=== PATIENT | male | born 1940 | race Caucasian/White ===

== ENCOUNTER 2018-09-20 15:18 | Observation (INO) ==
[2018-09-20] MEDS ORDERED: ZOFRAN IV PRN (15:27)
[2018-09-20] MEDS ORDERED: NS 1,000 ML IV SCH ×2 (15:30→17:43)
[2018-09-20] MEDS: ZOSYN 3.375 GM in NS 50 ML IV SCH ×2 (16:00→21:54)
[2018-09-20 16:36] LABS: BASO# 0.03 X1000 (0.0-0.2); BASO% 0.5 % (0.0-0.8); EOS# 0.09 X1000 (0.0-0.7); EOS% 1.5 % (0.0-10.0); HEMATOCRIT 41.1 % (42.0-52.0); HEMOGLOBIN 14.5 g/dL (14.0-18.0); IMM GRAN# 0.05 X1000 (0.0-0.04); IMM GRAN% 0.8 % (0.0-0.5); LYMPH# 1.55 X1000 (1.2-3.4); MCH 34.9 PG (27-31); MCHC 35.3 g/dL (33-37); MCV 98.8 FL (81-99); MONO% 11.3 % (1.7-9.3); NEUT# 3.77 X1000 (1.4-6.5); NEUT% 60.9 % (42.2-75.2); PLT 244 X1000 (130-400); RBC 4.16 XMIL (4.7-6.1); RDW 12.2 % (11.5-14.5); WBC 6.19 X1000 (4.8-10.8)
[2018-09-20 16:59] LABS: CALCIUM 9.2 mg/dL (8.8-10.2); CREATININE 1.2 mg/dL (0.7-1.2); POTASSIUM 3.5 mmol/L (3.5-5.1)
[2018-09-20] MEDS ORDERED: TYLENOL PO PRN (17:44)
--- NOTE | 2018-09-20 18:10 | HISTORY AND PHYSICAL ---
CHIEF COMPLAINT: Abdominal pain. 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 He has developed abdominal pain, actually more on the right than the left. It has increased in severity. He has had a chill while there in [place]. He did take an antibiotic, the name of which he does not recall, that was given to him by his [id number]. He denies any nausea or vomiting. He also was experiencing some chest discomfort, even though he admits to doing some work down there and it may be musculoskeletal in character. He has had a cardiac workup in the past that was unremarkable. PAST MEDICAL HISTORY: Includes prostate cancer, and he has had a prostatectomy. He has had urgent cardiac catheterization in the past. He has had some hypertension. MEDICATIONS: His medications at home include allopurinol 300 mg daily, Norvasc 10 mg daily, Aricept 5 mg at bedtime, Protonix 40 mg at bedtime. ALLERGIES: He has an intolerance to codeine, hydrocodone, tamsulosin and pseudoephedrine. SOCIAL HISTORY: He does not smoke. He does drink alcohol socially. Denies any illicit drug use. He is . He is retired. FAMILY HISTORY: Unremarkable. REVIEW OF SYSTEMS: As noted above. PHYSICAL EXAMINATION: VITAL SIGNS: Temperature is 99.1 degrees, heart rate 89, blood pressure 139/70. NECK: No cervical adenopathy. LUNGS: Bilateral breath sounds. HEART: Regular rate and rhythm. ABDOMEN: Diffusely tender. LABORATORY DATA: White count 6200, hemoglobin 14.5. BUN 14, creatinine 1.2. ASSESSMENT: Possible acute diverticulitis. PLAN: Clear liquids. We will start him on Zosyn. We will get a CT scan with IV and p.o. contrast to further evaluate him. Because of his chest discomfort, we will get an EKG. 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 cc: Jagdish Matthews MD
[2018-09-20] MEDS ORDERED: BENADRYL IV ONE (18:34)
[2018-09-20 19:03] LABS: URINE SOURCE CLEAN CATCH
[2018-09-20] MEDS ORDERED: PROTONIX PO ONE (19:06)
[2018-09-20 19:10] LABS: BILIRUBIN URINE NEGATIVE (NEGATIVE); BLOOD URINE NEGATIVE (NEGATIVE); COLOR YELLOW; GLUCOSE URINE NEGATIVE (NEGATIVE); KETONE URINE NEGATIVE (NEGATIVE); LEUKOCYTES URINE NEGATIVE (NEGATIVE); NITRITE URINE NEGATIVE (NEGATIVE); PH URINE 7.5; PROTEIN URINE NEGATIVE (NEGATIVE); TURBIDITY URINE CLEAR (CLEAR); UROBILINOGEN URINE NORMAL (NORMAL)
[2018-09-20 19:11] LABS: UR EPITHELIAL CELLS <10 /HPF (<10); URINE BACTERIA NEGATIVE /HPF; URINE RBC <10 /HPF (<10); URINE WBC <10 /HPF (<10)
[2018-09-20 19:58] LABS: ALB/GLOB RATIO 1.8; ALBUMIN 4.3 g/dL (3.5-5.0); CK INDEX 1.9 (0.0-2.5); CK-MB 4.61 ng/mL (0.0-5.0); DIRECT BILIRUBIN 0.2 mg/dL (0.00-0.20); TOTAL BILIRUBIN 0.46 mg/dL (0.20-1.00); TOTAL PROTEIN 6.7 g/dL (6.3-8.3)
--- NOTE | 2018-09-20 20:45 | Diag Imaging Result Doc PS360 ---
EXAM: CT ABD/PELVIS W/PO AND IV CON 09/20/2018 HISTORY: abd pain TECHNIQUE: This exam was performed using automated exposure control, adjustment of mA or kV according to patient size, and/or use of iterative reconstruction technique. COMMENT: There is no evidence of acute disease in the visualized portion of the chest. There are granulomata in the spleen. The liver is somewhat hypodense suggesting fatty change. There may be some small stones layering dependently in the gallbladder. No evidence of para cholecystic fluid is present. There is some cortical scarring in the lower pole of the left kidney. The aorta is slightly distended below the level of the renal arteries to a maximum AP diameter of 2.6 cm. The appendix is unremarkable. The adrenal glands are within normal limits. There is some contrast and stool in the colon. The small bowel is not distended. The appendix is normal in appearance. There is no evidence of significant adenopathy. There is diverticulosis in the descending colon. Pelvis: There is severe diverticulosis of the sigmoid colon. There is a focus of diverticulitis present in the anterior sigmoid colon without evidence of abscess. There is a small amount of free fluid in the rectovesical pouch. The urinary bladder is not distended. There are bilateral hip prostheses. There is degenerative disc disease with vacuum disc phenomenon at L5-S1 and vacuum facet arthropathy at L4-5 and L5-S1. IMPRESSION: Sigmoid diverticulitis. The findings were discussed with Jagdish Matthews MD at 09/20/2018 8:42 PM. Electronically signed by Jaquan Milton 09/20/2018 8:42 PM
[2018-09-20] MEDS ORDERED: ARICEPT PO SCH (21:00)
[2018-09-20] MEDS: TYLENOL PM PO PRN (22:06)
[2018-09-21] MEDS: ZOSYN 3.375 GM in NS 50 ML IV SCH ×4 (04:20→20:44)
[2018-09-21] MEDS: PROTONIX PO SCH (06:49)
[2018-09-21 06:56] LABS: BASO# 0.03 X1000 (0.0-0.2); BASO% 0.6 % (0.0-0.8); EOS# 0.13 X1000 (0.0-0.7); EOS% 2.5 % (0.0-10.0); HEMATOCRIT 40.2 % (42.0-52.0); HEMOGLOBIN 14.3 g/dL (14.0-18.0); IMM GRAN# 0.04 X1000 (0.0-0.04); IMM GRAN% 0.8 % (0.0-0.5); LYMPH# 1.34 X1000 (1.2-3.4); LYMPH% 26.2 % (20.5-51.1); MCH 35.2 PG (27-31); MCHC 35.6 g/dL (33-37); MONO# 0.86 X1000 (0.11-0.59); MONO% 16.8 % (1.7-9.3); MPV 8.8 FL (7.4-10.4); NEUT# 2.72 X1000 (1.4-6.5); NEUT% 53.1 % (42.2-75.2); PLT 228 X1000 (130-400); RBC 4.06 XMIL (4.7-6.1); RDW 12.1 % (11.5-14.5); WBC 5.12 X1000 (4.8-10.8)
[2018-09-21 07:13] LABS: ALB/GLOB RATIO 1.5; ALBUMIN 3.8 g/dL (3.5-5.0); CALCIUM 9.1 mg/dL (8.8-10.2); CREATININE 1.2 mg/dL (0.7-1.2); POTASSIUM 3.6 mmol/L (3.5-5.1); TOTAL BILIRUBIN 0.8 mg/dL (0.20-1.00); TOTAL PROTEIN 6.4 g/dL (6.3-8.3)
--- NOTE | 2018-09-21 08:28 | Diag Imaging Result Doc PS360 ---
EXAM: CHEST-2 VIEWS 09/21/2018 HISTORY: chest pain TECHNIQUE: PA and lateral chest COMMENT: There is no evidence of acute cardiac or pulmonary disease. Compared to 03/25/2018 there has been no significant change. IMPRESSION: Stable chest. Electronically signed by Jaquan Milton 09/21/2018 8:25 AM
[2018-09-21] MEDS: ZYLOPRIM PO SCH (08:57)
[2018-09-21] MEDS: NORVASC PO SCH (08:57)
[2018-09-21] MEDS ORDERED: NORVASC PO SCH (09:00)
[2018-09-21] MEDS ORDERED: ZYLOPRIM PO SCH (09:00)
--- NOTE | 2018-09-21 10:42 | CONSULTATION ---
DATE OF CONSULTATION: 09/20/2018 PRIMARY CARE PHYSICIAN: Dr. Art Morris. CHIEF COMPLAINT: Right lower quadrant pain, chest pain. HISTORY OF PRESENT ILLNESS: An 78-year-old, white male with past medical history significant for cervical spine pain, chronic kidney disease, diverticulitis, reflux disease, gout, hyperlipidemia, hypertension, obstructive sleep apnea, osteoarthritis, and prostate cancer presents for evaluation of above-mentioned symptoms. Current history of present illness began approximately 3 days ago. At that time, patient states he developed acute onset right lower quadrant pain. He noted associated chills, but denied fevers, nausea and vomiting. The patient started taking amoxicillin with some improvement. Unfortunately, symptoms did not resolve. The patient has had occasional episodes of diarrhea, but denies hematochezia and melena. He denies urinary symptoms including dysuria, hematuria, pyuria and urinary frequency. Because of persistent pain, patient contacted Dr. Matthews. Patient was admitted for full evaluation and management. In addition, patient states last night he developed chest discomfort. He describes this as similar to "angina." The location is noted to be substernal. He characterizes this as a pressure. He does have some pleuritic component, including pain with movement and with deep breathing. He also notes some pain with exertion and lifting boxes. He denies associated shortness of breath and diaphoresis. He has not experienced paroxysmal nocturnal dyspnea, orthopnea, or palpitations. He has chronic lower extremity edema. The patient will be admitted to the hospital for full evaluation and management of each of these conditions. PAST MEDICAL HISTORY: 1. Abnormal skin examination with multiple nevi and seborrheic keratoses. 2. Bilateral cataracts status post left-sided removal in 2017. 3. Cervical spine pain. 4. History of multiple episodes of chest discomfort. Per report, the last left heart catheterization was in 2016 reported as without significant blockage. 5. Chronic kidney disease with baseline creatinine 1.3. 6. History of diverticulitis in 1999 and 2011. 7. Reflux disease. 8. Gout. 9. Hyperlipidemia. 10. Hypertension. 11. History of tobacco use 12. Obstructive sleep apnea. 13. Osteoarthritis of bilateral hips, status post bilateral total hip arthroplasties. 14. Prostate cancer, status post robotic prostatectomy in 2016. 15. Chronic tinnitus. 16. Macular degeneration. CURRENT MEDICATIONS: 1. Allopurinol 300 mg daily. 2. Amlodipine 10 mg daily. 3. Vitamin B complex daily. 4. Losartan 50 mg at bedtime. 5. Pantoprazole 40 mg daily as needed. ALLERGIES: The patient states he is allergic to Benadryl which causes vivid dreams, Cymbalta which causes unsteady gait, hydrochlorothiazide which causes hyponatremia and hypokalemia, Lexapro which causes nightmares and Rapaflo which causes alteration of mental status and hyponatremia. SOCIAL HISTORY: The patient [*]cigars routinely. He has approximately 4 to 6 alcoholic drinks per week. He denies illicit drug use. 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 He enjoys hunting and fishing. He does not exercise routinely. FAMILY HISTORY: Patient's father passed at age 61 with complications of metastatic tongue cancer. He had a history of coronary artery disease with an acute myocardial infarction at age 58. The patient's mother passed secondary to unknown causes at age 99. She had a history of breast cancer. REVIEW OF SYSTEMS: A 12 point review of systems was performed. Pertinent positives and negatives are noted in history of present illness. PHYSICAL EXAMINATION: Vital signs: Temperature 99.1 degrees, heart rate 89, respirations 16, blood pressure is 139/70. General: Well nourished, well developed, no acute distress. HEENT: Normocephalic, atraumatic. Pupils equal, round, react to light. Extraocular muscles intact. Sclerae anicteric. [place] conjunctivae. Oral and nasopharynx clear without exudate. Neck: Supple. No lymphadenopathy. No thyromegaly. No bruits auscultated. Cardiovascular: Regular rate and rhythm. No significant murmurs, rubs, or gallops. Pulmonary: Clear to auscultation bilaterally. Abdomen: Soft. Tenderness in the right lower quadrant with guarding and rebound. Positive bowel sounds. Extremities: Moves all extremities well. No significant clubbing or cyanosis. There is 1+ lower extremity edema bilaterally. Neurologic examination: Cranial nerves 2 through 12 grossly intact. Motor and sensory grossly intact. PSYCHOLOGIC EXAMINATION: Appropriate. LABORATORY DATA: White blood cell count 6.19, hemoglobin 14.5, hematocrit 41.1, platelet count 244,000. Sodium 140, potassium 3.5, chloride 102, bicarbonate 21. BUN 14, creatinine 1.2, glucose 98, calcium 9.2. Total bilirubin 0.46, total protein 6.7, albumin 4.3. Alkaline phosphatase 99, AST 19, ALT 15. CK total 237, CK MB 4.61. Troponin less than 0.010. Urinalysis returned negative. IMAGING DATA: CT scan of the abdomen and pelvis is pending. ASSESSMENT AND PLAN: An 78-year-old, white male with past medical history as noted presents for evaluation of abdominal and chest discomfort. Abdominal pain is concerning for right lower quadrant pathology. This would include, but is not limited to appendicitis, atypical diverticulitis, colitis, urinary pathology including symptomatic nephrolithiasis, and adhesive disease. The patient's chest discomfort, although just atypical, could be of cardiac, musculoskeletal, gastrointestinal and pulmonary etiologies. The patient will be admitted to the hospital for full evaluation and management of each of these conditions. 1. Admit to [address] [place] [address]. 2. Abdominal pain/right lower quadrant pain--differential diagnosis is as described above. Laboratory data thus far is significant only for a normal white blood cell count, normal urinalysis, slightly low bicarbonate level, and an elevated anion gap of 17. I agree with intravenous antibiotics in the form of Zosyn. We will continue hydration. Further evaluation and management will be determined by CT scan findings. 3. Chest pain--as above, this is somewhat atypical. In the setting of multiple risk factors, including hypertension, hyperlipidemia, family history of heart disease, and advanced age, full evaluation is warranted. We will follow serial cardiac enzymes. We will place patient on telemetry. We will consult Dr. Mckeon for further cardiac guidance. At this point, I do feel abdominal symptoms are the primary diagnosis. Once this has been confirmed and treated, cardiac evaluation may be warranted. 4. Hypertension--for now, we will continue amlodipine therapy. We will hold losartan for now, especially in the setting of intravenous contrast. We will resume this once necessary. 5. Gout--we will continue patient on allopurinol therapy. 6. Chronic kidney disease--we will remain aware, especially in the setting of a CT scan evaluation. We will continue intravenous hydration. 7. Reflux disease--we will continue patient on pantoprazole therapy. Thank you for allowing me to participate in the care of Dr. Mattson. Recommendations will be determined by the CT scan findings and further laboratory and clinical evaluations. cc: MD Jagdish Valdez MD
[2018-09-21] MEDS ORDERED: LOVENOX SUBQ SCH (11:30)
--- NOTE | 2018-09-21 12:29 | CARDIOLOGY CONSULTATION ---
DATE: 09/21/2018 CHIEF COMPLAINT ON PRESENTATION: Abdominal pain as well as chest pain. 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 He presents for a few days of abdominal discomfort. This began while he was down in [place] doing some what sounds like maintenance around the house. He described as initially developing in the right lower quadrant and then eventually proceeding to involve essentially the entire abdomen but again, more acute in the right lower quadrant. He apparently had some antibiotics at home in the form of amoxicillin and began taking it with minimal improvement. He has had some diarrhea but really denies any nausea. The pain persisted and ultimately he was admitted by Dr. Matthews for further evaluations. Subsequently after admission, he had a CT of his abdomen that demonstrated diverticulitis. Over the last few days as well, he has had some episodes of discomfort in his chest. This was substernal in location. He has a difficult time describing some of these pains. They seem to be somewhat positional, occasionally pleuritic. He relates of many of these to doing a lot of maintenance around the house including lifting boxes. Some of these seemed to worsen in the days after he had these events. He has some history of cardiac evaluation, specifically a cardiac catheterization done a couple of years ago. I do not have the results of this. He cannot specifically report an exertional component of the pain occurring with non upper extremity exertion. It seems like he had several bouts of this over the last couple of days and again, some of them seem to be positional in nature and musculoskeletal, as well as there is some tenderness to palpation along the sternal border. PAST MEDICAL HISTORY: 1. Significant for previous episodes of chest discomfort with most recent cardiac catheterization in [address] Restrepo over at [facility]. I do not have the results of this. 2. Reflux disease. 3. Previous histories of diverticulitis. 4. Gout. 5. Hyperlipidemia. 6. Hypertension. 7. Obstructive sleep apnea. 8. Osteoarthritis. 9. Prostate cancer. 10. Macular degeneration. SOCIAL HISTORY: He smokes cigars. No illicit drug use. 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 FAMILY HISTORY: Father at 61 with an oropharyngeal cancer and had some heart disease with a LA around the age of 58. Mother around the age of 99. REVIEW OF SYSTEMS: A 10 system review of systems has been negative except for those mentioned the HPI. PHYSICAL EXAMINATION: Vital signs: The patient is afebrile during this hospitalization. His heart rate is 62 and seems to be predominantly in the 50s to 60s recently. His blood pressure is 138/74. General: He is in no acute distress. HEENT: Oropharynx is moist. Eye examination shows pink conjunctivae, white sclerae. Neck: Shows no obvious thyromegaly, no thyroid tenderness. Cardiovascular: He sounds to be in a regular rate and rhythm. I do not hear any obvious murmurs. He has no lower extremity edema. He has intact distal pulses in his bilateral lower extremities. Chest: Clear to auscultation bilaterally. He has no increased work of breathing. Abdomen: Soft. Bowel sounds are present. He has diffuse tenderness, most prominent in the right lower quadrant with some rebound noted. Extremities: No lower extremity edema. Neurological: He is moving all extremities well with no lateralizing deficits. Psychiatric: He is alert, oriented, pleasant. He has normal mood and affect. PERTINENT DATA: His EKG on presentation yesterday shows sinus rhythm with a first-degree AV block, rate of 69 beats per minute. No obvious ischemic changes or signs of previous infarct. His abdomen and pelvis CT was reviewed and demonstrates sigmoid diverticulitis. His chest x-ray today demonstrates no evidence of acute abnormalities. His lab findings show a white count of 5.1 hematocrit of 40, and his platelet count is 228,000. His sodium is 139, potassium 3.6, his BUN is 11, creatinine is 1.2. His LDL in November of last year was 106. His cardiac enzymes are negative times multiple sets. 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 PLAN: He is currently on antibiotics and seems to have an improvement in his overall symptoms as far as his abdomen is concerned. His EKG is normal. He has no elevation of his cardiac enzymes. His symptoms are somewhat atypical. We will try to obtain results of his cardiac catheterization. He was previously on amlodipine and losartan for antihypertensives We may preferentially try to stop the losartan and use another antianginal, possibly a nitrate considering his heart rate has been in the 50s to 60s, and then may just recommend reassessment of his symptoms as an outpatient. Certainly, we will review the catheterization results from a couple years ago as well. cc: MD Jagdish Collier MD MTDD
--- NOTE | 2018-09-21 12:29 | GENERAL SURGERY PROGRESS NOTE ---
DATE: 09/21/2018 Dr. 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 He still has some mild peritoneal tenderness, but he is slightly improved. He is afebrile. His white count is normal. The plan is to give him full liquids today. Continue Zosyn. We will reevaluate him tomorrow for advancing his diet. We will give him Ensure or Boost today as well. cc: Jagdish Matthews MD
--- NOTE | 2018-09-21 19:45 | PROGRESS NOTE ---
DATE: 09/21/2018 SUBJECTIVE: The patient was admitted yesterday with intractable right lower quadrant pain and chest discomfort. Full evaluation including a CT scan of the chest returned with acute sigmoid diverticulitis. Cardiac evaluation has included an EKG which returned with nonspecific ST and T- wave changes, largely unchanged from previous, and cardiac enzymes which returned negative. Telemetry overnight revealed no evidence of arrhythmia. This morning patient states overall he has achieved improvement. He continues to have some right lower quadrant pain, although this has decreased. Chest discomfort has essentially resolved. He denies fevers, chills, nausea, vomiting, or chest discomfort. Thus far, he has tolerated a clear liquid diet. OBJECTIVE: T-max 99.1 degrees, heart rate 57 to 89, respirations 16 to 20, blood pressure 121 to 139 over 72 to 75.General: Well nourished, well developed, no acute distress. Cardiovascular: Regular rate and rhythm. No significant murmurs, rubs, or gallops. Pulmonary: Clear to auscultation bilaterally. Abdomen: Soft. Tenderness in the right lower quadrant with guarding. Questionable rebound. Positive bowel sounds. Extremities: Moves all extremities well. No significant clubbing, cyanosis, or edema. Dermatologic: Evaluation reveals no evidence of rash. LABORATORY DATA: White blood cell count 5.12, hemoglobin 14.3, hematocrit 40.2, platelet count 228,000. Sodium 139, potassium 3.6, chloride 103, bicarb 24, BUN 11, creatinine 1.2, glucose 92, calcium 9.1, total bilirubin 0.80, total protein 6.4, albumin 3.8, alkaline phosphatase 88, AST 16, ALT 12. CT scan of the abdomen revealed severe diverticulosis of the sigmoid colon with a focus of diverticulitis present in the anterior sigmoid colon without evidence of abscess. Chest x-ray revealed a stable chest. ASSESSMENT AND PLAN: 1. Acute diverticulitis-this is in the setting of severe diverticulosis. We will continue patient on IV Zosyn therapy as his symptoms are improving. We will advance his diet to a full liquid diet. I suspect patient will benefit from intravenous antibiotics until early next week. At that time, we will transition him to ciprofloxacin and Flagyl for a total of 10 to 14 days. 2. Chest discomfort-symptoms were atypical. He is currently asymptomatic. He does, however, have multiple risk factors including hypertension, hyperlipidemia, family history of heart disease and advanced age. With a negative evaluation thus far, I do not feel acute intervention is necessary. We will follow recommendations per Dr. Mckeon. I suspect an outpatient evaluation including stress testing will be appropriate. 3. Hypertension-blood pressure is reasonably controlled with amlodipine therapy. We will continue to hold his losartan for now. 4. Gout-we will continue allopurinol therapy. 5. Chronic kidney disease-patient's creatinine remained stable at 1.2 after intravenous contrast for his CT scan. We will remain aware. 6. Disposition-at this point, patient continues to require correction care in the hospital setting. We will plan discharge home once appropriate. cc: MD Jagdish Valdez MD
[2018-09-21] MEDS: TYLENOL PM PO PRN (20:48)
[2018-09-22] MEDS: ZOSYN 3.375 GM in NS 50 ML IV SCH ×2 (04:15→08:30)
--- NOTE | 2018-09-22 05:31 | GENERAL SURGERY PROGRESS NOTE ---
DATE: 09/21/2018 SUBJECTIVE: Feels better this morning. Still a little bit of discomfort midline. No fevers. No tachycardia. OBJECTIVE: Vital signs: Blood pressure 130/74. General: He is alert, walking about the room. Abdomen: Soft. Cardiovascular: Normal rate. LABS: I reviewed his labs. White count is normal at 5, hematocrit 40. Creatinine is 1.2. Troponin has been negative x2. ASSESSMENT/PLANS: An 78-year-old gentleman with diverticulitis, focal inflammation. No abscess, no evidence perforation. We will continue antibiotics, bowel rest. He is tolerating clear liquids okay and we will see how he does over the next 24 to 48 hours. cc: MD Jagdish Alvarado MD
[2018-09-22] MEDS: PROTONIX PO SCH (06:44)
[2018-09-22 08:29] VITALS: BP 126/83
[2018-09-22] MEDS: ZYLOPRIM PO SCH (08:29)
[2018-09-22] MEDS: NORVASC PO SCH ×2 (08:30)
--- NOTE | 2018-09-23 08:27 | EKG Report ---
Test Performed on : 09/20/2018 6:06:02 PM Test Reason : CP Blood Pressure : / mmHG Vent. Rate : 069 BPM Atrial Rate : 069 BPM P-R Int : 214 ms QRS Dur : 102 ms QT Int : 408 ms P-R-T Axes : 062 004 015 degrees QTc Int : 437 ms Sinus rhythm. with 1st degree AV block. Low voltage QRS Incomplete right bundle branch block Nonspecific ST and T wave abnormality Abnormal ECG No previous ECGs available Confirmed by Daniel SALDAÑA, Lee Machado ([id number]) on 09/23/2018 9:27:47 AM
--- NOTE | 2018-09-23 12:30 | DISCHARGE SUMMARY ---
ADMISSION DATE: 09/20/2018 DISCHARGE DATE: 09/22/2018 ADMITTING DIAGNOSIS: Abdominal pain. DISCHARGE DIAGNOSIS: Acute diverticulitis. PROCEDURES PERFORMED: None. HISTORY OF PRESENT ILLNESS: This is an 78-year-old gentleman who has had diverticulosis for some time. He presented with a couple day history of worsening abdominal pain. He also had chest pain. He was admitted for management. CT scan showed diverticulitis. Cardiac evaluation was negative. Cardiology was consulted as well as Dr. Campoverde, his primary physician. HOSPITAL COURSE: He was admitted for bowel rest and intravenous antibiotics. He was started on Zosyn and he was continued on this throughout his stay. His pain improved on the 1st day and had resolved by the 2nd day. He was having bowel function, voiding, and was ambulating about the calixto and wanted to go home. He was tolerating a full liquid diet. No fevers. No tachycardia. At the time of discharge, his abdomen was soft, nontender, nondistended. LABORATORY DATA: White count was normal both at both admission and at discharge. Creatinine was 1.2. DISPOSITION: Home to self-care. FOLLOWUP APPOINTMENTS: In a week. DISCHARGE MEDICATION: His home medication and he was given a prescription for a 10 day course of Cipro and Flagyl. cc: MD Jagdish Alvarado MD
== END 2018-09-22 11:00 | disposition home or self-care (01) ==
LOC: INTOOBSV 15:18 → DIRADM 15:18 → 4N 15:21
PROVIDERS: ADMIT Surgery; ATTEND Surgery
CPT/HCPCS: 71020; 71046; 74177; 80048; 80053; 80076; 81001; 82550; 82553; 84484; 85025; 93005; 93010; 96365; 96366; 96372; 96375; 96376; A9270; G0378; G0379; J1200; J1650; J2543; J7030; Q9967

== ENCOUNTER 2018-12-30 04:01 | Inpatient (IN) ==
[2018-12-24 13:41] LABS: BASO# 0.03 X1000 (0.0-0.2); BASO% 0.5 % (0.0-0.8); EOS# 0.04 X1000 (0.0-0.7); EOS% 0.6 % (0.0-10.0); HEMATOCRIT 45.4 % (42.0-52.0); IMM GRAN# 0.03 X1000 (0.0-0.04); IMM GRAN% 0.5 % (0.0-0.5); LYMPH# 1.58 X1000 (1.2-3.4); LYMPH% 23.9 % (20.5-51.1); MCH 34.1 PG (27-31); MCHC 35.2 g/dL (33-37); MCV 96.8 FL (81-99); MONO# 0.95 X1000 (0.11-0.59); MONO% 14.4 % (1.7-9.3); MPV 8.9 FL (7.4-10.4); NEUT# 3.98 X1000 (1.4-6.5); NEUT% 60.1 % (42.2-75.2); PLT 295 X1000 (130-400); RBC 4.69 XMIL (4.7-6.1); RDW 12.5 % (11.5-14.5); WBC 6.61 X1000 (4.8-10.8)
[2018-12-24 13:51] LABS: CALCIUM 9.2 mg/dL (8.8-10.2); CREATININE 2.9 mg/dL (0.7-1.2); POTASSIUM 4.2 mmol/L (3.5-5.1)
[2018-12-30] MEDS ORDERED: DIPRIVAN 1% ONE (06:28)
[2018-12-30] MEDS ORDERED: FENTANYL ONE (06:28)
[2018-12-30] MEDS ORDERED: NORCURON ONE ×2 (06:30→09:39)
[2018-12-30] MEDS ORDERED: ROBINUL ONE ×2 (06:30→09:55)
[2018-12-30] MEDS ORDERED: NEO-SYNEPHRINE ONE ×2 (06:30→08:51)
[2018-12-30] MEDS ORDERED: QUELICIN (DOSE) ONE (06:30)
[2018-12-30] MEDS ORDERED: XYLOCAINE-MPF 2% ONE (06:30)
[2018-12-30] MEDS ORDERED: SODIUM CHLORIDE 0.9% 10 ML ONE ×2 (06:30→07:11)
[2018-12-30] MEDS ORDERED: LR 1,000 ML ONE ×2 (06:44→07:20)
[2018-12-30] MEDS ORDERED: SODIUM CHLORIDE 0.9% ONE (06:44)
[2018-12-30] MEDS ORDERED: MARCAINE 0.25% ONE (07:10)
[2018-12-30] MEDS ORDERED: EXPAREL 1.3% ONE (07:10)
[2018-12-30] MEDS ORDERED: PEPCID ONE (07:19)
[2018-12-30] MEDS ORDERED: ENTEREG ONE (07:19)
[2018-12-30] MEDS ORDERED: INVANZ 1 GM/NS 1 GM/50 ML IVPB ONE (07:20)
--- NOTE | 2018-12-30 07:26 | PROGRESS NOTE ---
DATE: 12/30/2018 SUBJECTIVE: Dr. 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 Matthews in preparation for sigmoid colon resection for recurrent diverticulitis and cholecystectomy . Urology was consulted due to need for cystoscopy and external ureteral stent placement. The patient has a history of prostate cancer that was treated by Dr. Avalos with a robotic-assisted laparoscopic prostatectomy. The patient overall denies any voiding complaints. The patient has a cardiac history with prior heart catheterization back in 2016. Overall, the patient is doing well. Denies any abdominal pain today. Denies any hematuria, dysuria, urgency, or frequency. OBJECTIVE: Vital Signs: Temperature 98 degrees, blood pressure 126/83, heart rate 70, oxygen saturation 98%. General: No acute distress. Resting comfortably in bed. Alert and oriented x3. Respiratory: Good respiratory effort without audible wheezing or rales. Cardiovascular: Regular rate and rhythm. Abdomen: Soft, nontender, nondistended. No palpable masses. : No suprapubic tenderness. No CVA tenderness. LABORATORY DATA: White blood count 6.6, hemoglobin 16.0, hematocrit 45.4, platelets 295,000. Sodium 138, potassium 4.2, chloride 102, bicarb 21, BUN 40, creatinine 2.9. ASSESSMENT AND PLAN: Dr. Mattson is an 78-year-old with significant history for gastroesophageal reflux disease, recurrent diverticulitis, gout, hyperlipidemia, hypertension, obstructive sleep apnea, osteoarthritis, prostate cancer status post prostatectomy, who presents today for cystoscopy and bilateral ureteral stent placement in preparation for sigmoid colon resection by Dr. Matthews today. Discussed with the patient, performing cystoscopy and placement of external stents. Stents will likely be removed prior to the end of the procedure. The patient also has a history of prostate cancer, and may have some bladder neck contracture. Discussed with him that this may need to be opened up to get into the bladder. After further discussion, the patient would like to proceed. Will plan to perform cystoscopy and bilateral ureteral stent placement for Dr. Matthews. All risks and benefits were discussed with the patient. cc: MD Jagdish Gill MD [facility] SERVICESRiky
[2018-12-30] MEDS ORDERED: ZOFRAN ONE (09:41)
[2018-12-30] MEDS ORDERED: DECADRON ONE (09:41)
[2018-12-30] MEDS ORDERED: NEOSTIGMINE ONE (09:57)
[2018-12-30] MEDS: DILAUDID ONE ×4 (10:36→10:55)
[2018-12-30] MEDS ORDERED: D5 NS 1,000 ML ONE (10:57)
[2018-12-30] MEDS ORDERED: PHENERGAN ONE (11:11)
[2018-12-30] MEDS ORDERED: LIDOCAINE SYRINGE ONE (11:34)
[2018-12-30] MEDS ORDERED: PROTONIX PO PRN (11:58)
[2018-12-30] MEDS: DILAUDID IV PRN ×3 (12:46→21:32)
[2018-12-30] MEDS: D5 NS 1,000 ML IV SCH ×2 (12:46→23:36)
[2018-12-30] MEDS: OFIRMEV 1000 MG/ISOTONIC SOLN 1,000 MG/100 ML BOTTLE IV SCH ×3 (12:46→23:42)
[2018-12-30] MEDS: LOVENOX SUBQ SCH (12:46)
--- NOTE | 2018-12-30 14:47 | OPERATIVE NOTE ---
PROCEDURE DATE: 12/30/2018 PROCEDURES PERFORMED: 1. Laparoscopic cholecystectomy. 2. Laparoscopic mobilization of splenic flexure. 3. Open descending and sigmoid colon resection with primary anastomosis. SURGEON: Jagdish Matthews MD. ROD GREASER: Dr. Davie Carlos MD, who assisted in all aspects of the procedure. PREOPERATIVE DIAGNOSIS: Recurrent sigmoid and left colon diverticulitis and chronic calculous cholecystitis. POSTOPERATIVE DIAGNOSIS: Recurrent sigmoid and left colon diverticulitis and chronic calculous cholecystitis. DESCRIPTION OF PROCEDURE: Satisfactory general endotracheal anesthesia was achieved. The patient was placed in Joe stirrups. The urologist came in, and placed ureteral stents. After that was completed, Dr. Garcia did that. After that was done, a tap block was performed by Dr. Johnson. After that, the abdomen was then prepped and draped in a sterile fashion. We made an incision around the umbilicus. We carried our incision down to the fascia, and used the umbilical defect or hernia to introduce our 11 trocar. We insufflated through this trocar under direct visualization. We introduced a 5 trocar in the mid clavicular line and a 5 trocar near the anterior axillary line, and an 11 mm trocar in the midepigastrium. We placed the patient in reverse Trendelenburg, and turned him to the left. We identified the fundus of the gallbladder. We reflected it cephalad, and began dissection of the triangle of Calot. We obtained a critical view. We clipped the cystic duct near the junction of the gallbladder, and divided it. We identified the cystic artery, clipped it proximally x2, distally x1, and divided it. We then used the cautery spatula to dissect the gallbladder away from the liver. After complete separation of gallbladder from liver, we changed videolaparoscope to the mid epigastric trocar, and introduced a claw forceps through the umbilical trocar. We grasped the infundibulum and delivered the gallbladder out of the abdominal cavity without difficulty. We looked back and hemostasis was satisfactory. We then turned the patient to the right, and kept his head up. We had an additional 5 trocar in the left lower quadrant. We used our camera through the epigastric trocar site. I worked through the umbilical trocar and in the left lower quadrant trocar site. We then began mobilizing the left colon along the white line of Toldt. We dissected up to the splenic flexure. We then changed the videolaparoscope to the umbilical trocar. I worked through the epigastric trocar. We then mobilized the splenic flexure. Dr. Carlos was assisting in holding the omentum up, and I dissected the omentum away from the transverse colon to near the midline. We swept the splenic flexure down and came it down easily in order to mobilize it. After we had satisfactorily dissected it caudad, we then looked back, and hemostasis was satisfactory. We were satisfied that we had mobilized it adequately. I then flattened the patient, desufflated, and removed our trocars. I then made an incision from just above the umbilicus through our trocar incision on down to the pubis, and opened the abdominal cavity. Upon opening the abdominal cavity, we noted the sigmoid colon which was redundant and had a lot of diverticula. We used our Bookwalter retractor, and placed the patient in Trendelenburg. We then retracted the abdominal wall laterally on each side, and then placed the retractor inferiorly. The pelvis was quite free of adhesions. We could bring the left colon down nicely. We then continued incising the white line of Toldt down to the pelvic brim. After placing our Bookwalter retractor refracting the small bowel cephalad, we placed the patient in profound Trendelenburg. We then scored the peritoneum on both sides and down into the pelvis. We identified an area in the proximal rectum that we felt was convenient and cleared of diverticula. The colon was soft down here, and we felt this would be a good place to do the anastomosis. The proximal colon appeared to come down without tension to this area so this was our distal target. We went ahead and divided the colon proximally, and then used the LigaSure to divide the mesentery until we reached vessels. We then clamped and divided them with Meghana clamps, ligating them with 2-0 silk suture ligatures. We came down into the pelvis and dissected along the colon until we reached our distal target, and then we cleaned off the colon there and laid the colon up so that we could identify the back wall of the proximal rectum and then brought the proximal colon down, and placed our 3-0 silks in the Lembert fashion to make our posterior muscular cutaneous row. We then amputated the colon, handed it off, and amputated the proximal staple line. We then used a 3-0 Polysorb running locking stitch posteriorly changing it to a Isela stitch anteriorly, and then a final layer with interrupted 3- 0 silks in a Lembert fashion. This thereby completed a 2 layered sewn end to end closure. There was no tension on the bowel. We then changed our gloves or sucker tip, and then irrigated out the abdominal cavity. Hemostasis was satisfactory. We flattened the patient. We removed our laps and retractors, and allowed the small bowel to assume its normal position. Inspection of the left upper quadrant showed no bleeding. Right upper quadrant showed no bleeding. We then laid the omentum over the bowel, and then closed the peritoneum with 2-0 chromic. We closed the fascia with a running #2 Prolene. In so doing, we repaired the umbilical hernia. Subcutaneous tissue was irrigated out. A 2-0 Polysorb was used to close the fascia of the epigastric trocar site. We then closed the skin at each incision with mayank. Sterile dressings were applied. He tolerated it well. The ureteral stents were removed at the end of the procedure. He was sent to the recovery room in satisfactory condition. cc: MD Art Valerio MD
--- NOTE | 2018-12-30 19:10 | OPERATIVE NOTE ---
PROCEDURE DATE: 12/30/2018 PREOPERATIVE DIAGNOSIS: 1. Recurrent diverticulitis. 2. History of prostate cancer status post prostatectomy POSTOPERATIVE DIAGNOSIS: 1. Recurrent diverticulitis. 2. History of prostate cancer status post prostatectomy PROCEDURE PERFORMED: Cystoscopy with bilateral externalized stent placement. SURGEON: Buddy Garcia MD. TESTER/LIFT TRUCKER: None. COMPLICATIONS: None. BLOOD LOSS: Minimal. DRAINS: 1. A 16-Irish Her catheter. 2. Bilateral 5-Irish open-ended ureteral catheters. SPECIMENS REMOVED: None. ANESTHESIA: General. INDICATIONS FOR PROCEDURE: Srinivasan is an 78-year-old with history of recurrent diverticulitis who has had multiple flares of this and was scheduled by Dr. Matthews to undergo resection of diverticulitis with primary anastomosis. The patient has history of prostate cancer treated by Dr. Avalos. Dr. Matthews requested cystoscopy and externalized stent to assist in visualization of the ureters during the procedure. I discussed with Dr. Mattson the procedure and reviewed the risks, benefits, alternatives to procedure and he elected to proceed. DESCRIPTION OF PROCEDURE: After informed consent was obtained, the patient brought to the operating room, placed on the operating table in supine position. The patient underwent general anesthesia with endotracheal intubation, received preoperative antibiotics per General surgery. The patient was then placed into a dorsal position was prepped and draped in usual sterile fashion. A preoperative time-out was performed with all parties in agreement, including anesthesia, surgical, and nursing staff. At which point a 21-Irish cystourethroscope was obtained. This was passed through a normal appearing urethra and into the bladder. The patient has had history of prostatectomy with surgical absent prostate and had widely patent urethra with no evidence of any stricture disease or papillary lesions. Once inside the bladder, the entirety of the bladder was inspected with grade 1 trabeculations with no evidence of any diverticulum or cellules. Both ureteral orifices were visualized and were closer to the bladder neck following his prostate procedure. Both ureteral orifices were visualized with efflux of clear yellow urine at which point a ZIPwire was then obtained, passed through the left ureteral orifice and a open-ended ureteral catheter was advanced up into the collecting system itself and stopped at 25 cm emerald. This was left in place and cystourethroscope was completely removed. The cystourethroscope was then reinserted and the right orifice was cannulize with the wire and passed up into the kidney and another open-ended catheter was advanced with ease up into the ureter and measured a 25 cm. Both these were left in place and a 16-Irish silicone catheter was advanced through the urethra into the bladder with drainage of clear yellow urine. This inflated with 10 mL sterile water and placed to gravity drainage using a 14-gauge needle, this was passed through the tip of the catheter and allowed for passage of the open-ended catheters through it and into the drainage bag. Once this is completed, good clear efflux was seen through the bag and all of the stents and catheter were attached to one another with 0 silk ties, at which point urology part of the procedure was completed and he was transferred over to the care of Dr. Matthews for completion of his per procedure. Please see separately dictated operative note. cc: MD Jagdish Gill MD MTDD
[2018-12-30] MEDS: ZOFRAN IV PRN (21:32)
[2018-12-30] MEDS: PERIDEX MT SCH (21:33)
[2018-12-31] MEDS: DILAUDID IV PRN ×6 (00:27→21:39)
[2018-12-31] MEDS: COZAAR PO SCH ×2 (04:23→21:01)
[2018-12-31] MEDS: ZOFRAN IV PRN (04:37)
[2018-12-31] MEDS: OFIRMEV 1000 MG/ISOTONIC SOLN 1,000 MG/100 ML BOTTLE IV SCH ×2 (04:37→08:52)
[2018-12-31 06:00] LABS: HEMATOCRIT 37.1 % (42.0-52.0); LYMPH# 0.53 X1000 (1.2-3.4); LYMPH% 4.3 % (20.5-51.1); MCV 97.1 FL (81-99); MONO# 0.81 X1000 (0.11-0.59); MONO% 6.6 % (1.7-9.3); MPV 9.1 FL (7.4-10.4); NEUT# 11.02 X1000 (1.4-6.5); NEUT% 89.1 % (42.2-75.2); PLT 295 X1000 (130-400); RBC 3.82 XMIL (4.7-6.1); RDW 11.9 % (11.5-14.5); WBC 12.36 X1000 (4.8-10.8)
[2018-12-31 06:53] LABS: CREATININE 1.7 mg/dL (0.7-1.2); POTASSIUM 4.7 mmol/L (3.5-5.1)
[2018-12-31] MEDS: NORVASC PO SCH ×2 (08:37→08:53)
[2018-12-31] MEDS: PERIDEX MT SCH ×2 (08:37→21:00)
[2018-12-31] MEDS: ZYLOPRIM PO SCH (08:37)
[2018-12-31] MEDS: ENTEREG PO SCH ×2 (08:37→21:01)
[2018-12-31] MEDS: ASPIRIN EC PO SCH ×2 (08:37→08:52)
[2018-12-31] MEDS: D5 NS 1,000 ML IV SCH ×4 (08:52→21:38)
[2018-12-31] MEDS: LOVENOX SUBQ SCH (12:35)
--- NOTE | 2018-12-31 13:25 | GENERAL SURGERY PROGRESS NOTE ---
DATE: 12/31/2018 SUBJECTIVE: Carlyle is generally well. OBJECTIVE: Vital signs: He is afebrile, heart rate 80, blood pressure 154/71. General: He is slightly confused. Lungs: His lungs sound clear. Heart: Regular rate and rhythm. Abdomen: Somewhat distended and mildly tympanitic. He says he has been passing flatus. LABORATORY DATA: Hemoglobin is 13. BUN 21, creatinine 1.7. ASSESSMENT AND PLAN: He is doing generally well. We will cut his IV rate down to 75. I will let him have some liquid. We will keep his Hre until tomorrow and I have discussed this with him. He can get up in a chair. cc: Jagdish Matthews MD
[2018-12-31] MEDS: PROTONIX PO SCH (21:01)
--- NOTE | 2018-12-31 21:47 | CONSULTATION ---
DATE OF CONSULTATION: 12/31/2018 REQUESTING PHYSICIAN: Dr. Jagdish Matthews. REASON FOR CONSULTATION: Medical management of hypertension, reflux disease, gout and chronic kidney disease. HISTORY OF PRESENT ILLNESS: An 78-year-old white male with complicated past medical history presents in consultation for above-mentioned conditions. Pertinent history of present illness began several weeks ago. At that time, patient developed acute onset diverticulitis. The patient was treated with IV antibiotic intervention. This unfortunately proved to be short lived. Recently, patient again developed an episode. He was treated as an outpatient with oral antibiotics. The patient was seen by Dr. Matthews. No surgical intervention was recommended. The patient was admitted yesterday for elective laparoscopic cholecystectomy, laparoscopic mobilization of the splenic flexure and open descending sigmoid colon resection with primary anastomosis. The patient tolerated this quite well. Thus far, patient's postoperative course has been largely uneventful. Patient has had a modest confusion. He is however passing flatus. The patient walked in the calixto today with assistance. The patient has had no episodes of fevers, chills, nausea, or vomiting. PAST MEDICAL HISTORY: 1. Multiple nevi and seborrheic keratoses, followed by Dr. Lang. 2. Status post left-sided cataract removal in 2017. Right-sided intervention has not been recommended today. 3. Cervical spine pain. 4. History of multiple episodes of chest discomfort with negative heart catheterization in 2016. 5. Chronic kidney disease with baseline creatinine 1.3. 6. Recurrent diverticulitis. 7. Reflux disease. 8. Gout. 9. Hyperlipidemia. 10. Hypertension. 11. History of hyponatremia. 12. Hypothyroidism. 13. History of a slightly elevated MCV. 14. History of tobacco use. 15. Obstructive sleep apnea. 16. Mild memory impairment. 17. Osteoarthritis status post bilateral total hip arthroplasties with revision of the left hip secondary to recurrent dislocation in the late 1999s. 18. History of prostate cancer status post robotic prostatectomy in 2016. 19. Chronic tinnitus. 20. Macular degeneration. CURRENT MEDICATIONS: 1. Aspirin 81 mg daily. 2. Allopurinol 300 mg daily. 3. Amlodipine 10 mg daily. 4. B-complex vitamin daily. 5. Losartan 50 mg at bedtime. 6. Pantoprazole 40 mg daily as needed. ALLERGIES: Patient states he is allergic to Benadryl, Cymbalta, hydrochlorothiazide, Lexapro and Rapaflo. SOCIAL HISTORY: The patient continues to intermittently chew cigars. He has never been a routine smoker. He has approximately 4 to 6 drinks per week. He denies illicit drug use. 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 He enjoys hunting and fishing. He does not exercise routinely. FAMILY HISTORY: Patient's father passed at age 61 secondary to complications of metastatic tongue cancer. He had a history of coronary artery disease with an acute myocardial infarction at age 56. The patient's mother passed at age 99 secondary to unknown causes. She had a history of breast cancer. REVIEW OF SYSTEMS: A 12 point review of systems was performed. Pertinent positives and negatives are noted in history present illness. PHYSICAL EXAMINATION: Vital Signs: Temperature 97.5 degrees, heart rate 83, respirations 18, blood pressure is 145/75. General: Well nourished, well developed, no acute distress. HEENT: Normocephalic, atraumatic. Pupils equal, round, reactive to light. Extraocular muscles intact. Sclerae anicteric. Ronco conjunctivae. Oral and nasopharynx clear without exudate. Neck: Supple. No lymphadenopathy. No thyromegaly. No bruits auscultated. Cardiovascular: Regular rate and rhythm. No significant murmurs, rubs, or gallops. Pulmonary: Clear to auscultation bilaterally. Abdomen: Soft, postoperative tenderness. Bowel sounds present but slightly diminished. Extremities: Moves all extremities well. No significant clubbing, cyanosis, or edema. Neurologic: Cranial nerves 2-12 grossly intact. Motor and sensory grossly intact. Psychologic: Appropriate. LABORATORY DATA: White blood cell count 12.36, hemoglobin 13.0, hematocrit 37.1, platelet count 295,000. Sodium 139, potassium 4.7, chloride 102, bicarb 22, BUN 21, creatinine 1.7, glucose 139. ASSESSMENT AND PLAN: An 78-year-old white male with past medical history as noted presents in consultation for medical management after laparoscopic cholecystectomy and open descending and sigmoid colon resection with primary anastomosis. Thus far, his postoperative course has been complicated only by mild confusion. He is passing flatus. His energy level is improving as he is ambulating in the halls with assistance. The patient's home medications will be adjusted as described below. Thank you for allowing me to participate in the care of Dr. Mattson. 1. Recurrent diverticulitis-unfortunately, patient failed outpatient management. The patient is postoperative day 1 open descending and sigmoid colon resection with primary anastomosis. Postoperative course, thus far, has been largely uncomplicated. We will defer postoperative management and advancement of diet to Dr. Matthews. We will encourage incentive spirometry and aspiration precautions. 2. Chronic kidney disease-the patient's baseline creatinine is approximately 1.3. Creatinine today is 1.7. We will continue IV fluids for now. We will follow this. 3. Reflux disease-we will resume pantoprazole 40 mg at bedtime. As above, we will encourage aspiration precautions. 4. Hypertension-the patient's blood pressure is trending up. We will continue patient on losartan at bedtime. We will decrease the home dosage of amlodipine 10 mg to 5 mg daily. If he tolerates this tomorrow, we will plan to advance this to his home regimen. 5. Gout-we will continue patient on allopurinol therapy. We will hydrate as described above. 6. Prophylaxis-patient will be continued on Lovenox therapy. cc: MD Jagdish Valdez MD
[2019-01-01 05:56] LABS: HEMATOCRIT 38.2 % (42.0-52.0); HEMOGLOBIN 13.4 g/dL (14.0-18.0); IMM GRAN# 0.03 X1000 (0.0-0.04); IMM GRAN% 0.2 % (0.0-0.5); LYMPH# 0.85 X1000 (1.2-3.4); LYMPH% 6.1 % (20.5-51.1); MCH 33.9 PG (27-31); MCHC 35.1 g/dL (33-37); MCV 96.7 FL (81-99); MONO# 1.42 X1000 (0.11-0.59); MONO% 10.2 % (1.7-9.3); NEUT# 11.66 X1000 (1.4-6.5); NEUT% 83.5 % (42.2-75.2); PLT 298 X1000 (130-400); RBC 3.95 XMIL (4.7-6.1); RDW 11.8 % (11.5-14.5); WBC 13.96 X1000 (4.8-10.8)
[2019-01-01] MEDS: DILAUDID IV PRN (06:29)
[2019-01-01 06:38] LABS: CALCIUM 8.8 mg/dL (8.8-10.2); CREATININE 1.5 mg/dL (0.7-1.2); POTASSIUM 3.4 mmol/L (3.5-5.1)
[2019-01-01] MEDS ORDERED: PROTONIX PO SCH (07:00)
[2019-01-01] MEDS ORDERED: D5 NS 1,000 ML IV SCH (07:02)
--- NOTE | 2019-01-01 07:38 | GENERAL SURGERY PROGRESS NOTE ---
DATE: 01/01/2019 Carlyle is doing generally well. OBJECTIVE: He is afebrile. Heart rate 61, blood pressure 120/55. Lungs sound clear. His abdomen is quiet. He has passed a little flatus. He has no peripheral edema. LABORATORY DATA: [place] [address], hemoglobin 13.4. Potassium 3.4, BUN 15, creatinine 1.5. ASSESSMENT: Satisfactory progress. He has had a little bit of confusion. PLAN: Today will be to take his Her out and will reduce his IV to KVO. I will not advance his diet yet in view of his ileus. cc: Jagdish Matthews MD
[2019-01-01] MEDS ORDERED: POTASSIUM CHLORIDE 20 MEQ/SWI 20 MEQ/100 ML IVPB IV ONE (08:10)
[2019-01-01] MEDS: NORVASC PO SCH (08:50)
[2019-01-01] MEDS: ASPIRIN EC PO SCH (08:51)
[2019-01-01] MEDS: ZYLOPRIM PO SCH (08:51)
[2019-01-01] MEDS: ENTEREG PO SCH ×2 (08:51→20:40)
[2019-01-01] MEDS: PERIDEX MT SCH ×2 (08:53→20:40)
[2019-01-01] MEDS: LOVENOX SUBQ SCH (13:35)
[2019-01-01] MEDS: OFIRMEV 1000 MG/ISOTONIC SOLN 1,000 MG/100 ML BOTTLE IV SCH ×2 (16:46→23:05)
[2019-01-01] MEDS: COZAAR PO SCH (20:38)
[2019-01-01] MEDS: PROTONIX PO SCH (20:40)
--- NOTE | 2019-01-01 21:51 | PROGRESS NOTE ---
DATE: 01/01/2019 SUBJECTIVE: Upon my arrival this morning, patient was sitting upright in bed. Overall, he states he had a good evening. He rested well. Throughout the day today, the patient continued to do well. He is passing flatus and having bowel movements. Energy level is low, but improving. He is ambulating in his room independently. He denies fevers, chills, nausea, vomiting, shortness of breath, or chest discomfort. OBJECTIVE: Vital Signs: T-max 98.2, heart rate 61 to 65, respirations 16 to 20, blood pressure 120 to 148 over 55 to 81. General: Well nourished, well developed, no acute distress. Cardiovascular: Regular rate and rhythm. No significant murmurs, rubs, or gallops. Pulmonary: Clear to auscultation bilaterally. Abdomen: Soft. Postoperative tenderness without guarding or rebound. Positive bowel sounds. Extremities: Moves all extremities well. No significant clubbing, cyanosis, or edema. Dermatologic: Evaluation reveals a dressed surgical wound. LABORATORY DATA: White blood cell count 13.96, hemoglobin 13.4, hematocrit 38.2, platelet count 298,000. Sodium 142, potassium 3.4, chloride 106, bicarb 23, BUN 15, creatinine 1.5, glucose 116, calcium 8.8. ASSESSMENT AND PLAN: 1. Recurrent diverticulitis. Patient is postoperative day number 2 open descending and sigmoid colon resection with primary anastomosis. Thus far, patient has tolerated well. Bowel sounds are present. He is passing flatus and having bowel movements. We will defer postoperative management to Dr. Matthews. 2. Chronic kidney disease. Patient's baseline creatinine is 1.3. Creatinine today is 1.5. We will continue intravenous fluids and encourage p.o. intake as tolerated. 3. Reflux disease. Patient is currently being treated with pantoprazole therapy. Symptoms are controlled. 4. Hypertension. The patient's losartan was continued at bedtime yesterday. Amlodipine was decreased from 10 mg to 5 mg daily. Blood pressure at present time is reasonably controlled. As his activity level increases, we will likely need to increase his amlodipine back 10 mg daily. 5. Hypokalemia. We will replete this today. 6. Leukocytosis. The patient has no evidence of infection at this time. I suspect this may be secondary to demargination associated with surgery. We will continue to follow closely. 7. Gout. We will continue patient on allopurinol therapy. Symptoms are controlled. 8. Prophylaxis. We will continue patient on Lovenox and encourage incentive spirometry/aspiration precautions. 9. Disposition. At this point, patient continues to require custodial care in a hospital setting. We will plan discharge home once appropriate. cc: MD Jagdish Valdez MD
[2019-01-02] MEDS: OFIRMEV 1000 MG/ISOTONIC SOLN 1,000 MG/100 ML BOTTLE IV SCH (04:15)
[2019-01-02 06:27] LABS: BASO# 0.02 X1000 (0.0-0.2); BASO% 0.2 % (0.0-0.8); EOS# 0.03 X1000 (0.0-0.7); EOS% 0.3 % (0.0-10.0); HEMATOCRIT 38.2 % (42.0-52.0); HEMOGLOBIN 13.2 g/dL (14.0-18.0); LYMPH# 1.58 X1000 (1.2-3.4); LYMPH% 17.7 % (20.5-51.1); MCH 34.1 PG (27-31); MCHC 34.6 g/dL (33-37); MCV 98.7 FL (81-99); MONO# 1.49 X1000 (0.11-0.59); MONO% 16.6 % (1.7-9.3); MPV 9.3 FL (7.4-10.4); NEUT# 5.83 X1000 (1.4-6.5); NEUT% 65.2 % (42.2-75.2); PLT 271 X1000 (130-400); RBC 3.87 XMIL (4.7-6.1); RDW 12.3 % (11.5-14.5); WBC 8.95 X1000 (4.8-10.8)
[2019-01-02 07:07] LABS: AGAP 13; BUN 14 mg/dL (8-22); CALCIUM 8.7 mg/dL (8.8-10.2); CHLORIDE 103 mmol/L (98-107); COSMO 282; CREATININE 1.1 mg/dL (0.7-1.2); ESTIMATED GFR > 60; GLUCOSE 130 mg/dL (70-104); POTASSIUM 2.9 mmol/L (3.5-5.1); SODIUM 140 mmol/L (136-145); TCO2 24 mmol/L (25-35)
[2019-01-02] MEDS ORDERED: ENTEREG PO PRN (08:25)
[2019-01-02] MEDS: PERIDEX MT SCH ×2 (08:48→20:30)
[2019-01-02] MEDS: ZYLOPRIM PO SCH (08:48)
[2019-01-02] MEDS: NORVASC PO SCH (08:48)
[2019-01-02] MEDS: ASPIRIN EC PO SCH (08:48)
[2019-01-02] MEDS: KLOR-CON PO SCH ×3 (08:49→17:40)
[2019-01-02] MEDS ORDERED: ULTRACET 37.5MG/325MG PO PRN (09:06)
[2019-01-02] MEDS ORDERED: SALINE LOCK IV FLUID XX ONE (09:07)
--- NOTE | 2019-01-02 10:29 | PROGRESS NOTE ---
DATE: 01/02/2019 SUBJECTIVE: This is for Dr. Art Morris. Says he feels pretty good, had a pretty good night. He has a little tender place just right of the midline incision. He is passing flatus and barely some loose stool. Requested a soft gastrointestinal diet. OBJECTIVE: Vital Signs: Temperature 98.1 degrees, pulse 67, respirations 18, blood pressure 131/76. Eyes: Pupils are equal. Neck: No distended neck veins. Lungs: Clear in all lung gomez. Cardiovascular exam: Regular rhythm and rate without murmur or S3. Abdomen: Soft and really no significant tenderness. : Urine output 2600 mL. LABORATORY DATA: From this morning, white count 8950, hematocrit is 38, platelet count 271,000. Chemistry: Sodium 140, potassium 2.9, chloride 103. BUN 14, creatinine 1.1. ASSESSMENT AND PLAN: 1. Recurrent diverticulitis. The patient is postoperative day 3, open descending and sigmoid colon resection, primary anastomosis. He is doing well. Advance to soft diet. 2. Chronic kidney disease. Creatinine 1.3. Creatinine has steadily come down, is 1.1 today. Volume status looks good. 3. Gastroesophageal reflux disease. He is on proton pump inhibitor, pantoprazole. 4. Hypertension. Blood pressures are doing well. 5. Hypokalemia. We will replete with some oral. 6. Leukocytosis has resolved. 7. History of gout. 8. He is on deep vein thrombosis prophylaxis. Review of his orders: I will put him on some potassium chloride 20 mEq 3 times a day. He is on Protonix 40 mg at bedtime, Dilaudid 1 mg IV q. 3 hours p.r.n., allopurinol 300 mg a day, Entereg-- he refused his last dose and change that to p.r.n. if he needs it. Norvasc 5 mg a day, aspirin 81 mg a day, Lovenox 40 mg subcutaneous q. 24 hours, Cozaar 50 mg at bedtime. He is getting acetaminophen 1000 mg IV q. 6 hours p.r.n. Increase his activity and put him on a soft diet. cc: MD Jagdish Villareal MD
[2019-01-02] MEDS: LOVENOX SUBQ SCH (12:46)
[2019-01-02] MEDS: OFIRMEV 1000 MG/ISOTONIC SOLN 1,000 MG/100 ML BOTTLE IV PRN ×2 (15:22→21:48)
[2019-01-02] MEDS: COZAAR PO SCH (20:30)
[2019-01-02] MEDS: PROTONIX PO SCH (20:30)
[2019-01-03] MEDS: OFIRMEV 1000 MG/ISOTONIC SOLN 1,000 MG/100 ML BOTTLE IV PRN (02:52)
[2019-01-03 06:54] LABS: CALCIUM 9.1 mg/dL (8.8-10.2); CREATININE 1.2 mg/dL (0.7-1.2); POTASSIUM 3.8 mmol/L (3.5-5.1)
[2019-01-03] MEDS ORDERED: NS + KCL 40 MEQ 1,000 ML IV SCH (08:45)
--- NOTE | 2019-01-03 09:03 | PROGRESS NOTE ---
DATE: 01/03/2019 SUBJECTIVE: Pretty uneventful night. His mouth is dry. He still has a little point tenderness on the right side of his midline incision a little below the umbilicus. It is not really changed but it is shredder tender peat and he still has pain there. OBJECTIVE: Vital signs: Temperature 97.6 degrees, pulse 56, respirations 18, blood pressure 125/64. HEENT: Pupils are equal and round. No distended neck veins. Color is good. Conjunctiva pink. Sclerae clear. Lungs: Clear anterolateral. Cardiovascular: Regular rhythm and rate. Abdomen: Soft. He is passing flatus. LABORATORY DATA: From this morning, sodium 139, potassium 3.8, chloride 103, BUN 14, creatinine 1.2, bicarb is 24. Blood sugars 139, 116, 131 and 104. ASSESSMENT AND PLAN: 1. Recurrent diverticulitis. Patient is postoperative day 4 open surgery for descending and sigmoid colon resection, primary anastomosis. Doing very well. He is on a soft diet. 2. Chronic kidney disease. Creatinine is at baseline. I am going to give him a little bit of normal saline with some potassium. 3. Gastroesophageal reflux disease, on pantoprazole. 4. Hypertension. 5. Hypokalemia. 6. Leukocytosis. 7. History of gout. He is on allopurinol. 8. He is on thrombosis prophylaxis. cc: MD Jagdish Villareal MD
[2019-01-03] MEDS: ZYLOPRIM PO SCH (09:09)
[2019-01-03] MEDS: KLOR-CON PO SCH ×2 (09:09→12:47)
[2019-01-03] MEDS: NORVASC PO SCH (09:09)
[2019-01-03] MEDS: ASPIRIN EC PO SCH (09:09)
[2019-01-03] MEDS: PERIDEX MT SCH (09:10)
[2019-01-03] MEDS: LOVENOX SUBQ SCH (11:10)
[2019-01-03 12:30] VITALS: BP 125/78
--- NOTE | 2019-01-03 13:19 | GENERAL SURGERY PROGRESS NOTE ---
DATE: 01/03/2019 Etsher is now 4 days after his sigmoid resection and cholecystectomy. He is doing generally well. He is afebrile with stable hemodynamics. He is eating solid food. His bowels had moved. He is passing flatus. His lungs are clear. His abdomen is soft. He has pinpoint tenderness on the right but no evidence of rebound tenderness. He has active bowel sounds. His potassium is up to 3.8 today. His creatinine is 1.2. PLAN: The plan is to discharge him home. I will give him a prescription for [place] 7.5. Otherwise, he will resume his usual medications. He will return to the office in a week for staple removal. cc: Jagdish Matthews MD
--- NOTE | 2019-01-14 12:04 | DISCHARGE SUMMARY ---
ADMISSION DATE: 12/30/2018 DISCHARGE DATE: 01/03/2019 PRIMARY DISCHARGE DIAGNOSIS: Recurrent diverticulitis of the sigmoid colon and symptomatic cholelithiasis. PRIMARY PROCEDURE: Laparoscopic-assisted sigmoid and left colectomy, along with a cholecystectomy. The patient did have ureteral stents placed preoperatively. 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 He additionally has cholelithiasis with some symptoms, and desires his gallbladder to be removed. He was prepped as an outpatient, was admitted the morning of 12/30/2018, and underwent ureteral stent placement by Dr. Garcia, and then this operation by myself. Postoperatively, he did quite well. Dr. Art Morris was consulted since he is his regular physician. We were able to maintain reasonable pain control. He did have a tap block at the time of the surgery, which helped. IV Tylenol seemed to control his pain satisfactorily. We took his Her out on 01/01/2019, and we started him on clear liquids. We advanced his diet subsequently. He was slightly confused, but not severely so. His hypokalemia was treated and resolved. By 01/03/2019, postop day 4, he was tolerating solid food. His bowels had moved. His wound was fine. It was felt he could be discharged home. His slightly elevated creatinine had fallen down to 1.2, so he was discharged home on 01/03/2019 with a prescription for [place]. He will resume his usual medications otherwise, and he will return to the office next week for staple removal. cc: Jagdish Matthews MD
== END 2019-01-03 13:05 | disposition home or self-care (01) | DRG 330 ==
LOC: SURHOLD 04:01 → 4N 09:54
PROVIDERS: ADMIT Surgery; ATTEND Surgery